=== PATIENT | female | born 1965 | race Two or more races ===

== ENCOUNTER → 2017-01-27 | Outpatient (CLI) | payer MEDICARE, MEDICAID ==
--- NOTE | 2017-01-27 10:29 | RADRPT ---
PROCEDURE: Bilateral knee x-ray CLINICAL INDICATION: PAIN TECHNIQUE: AP weightbearing, PA flexion, lateral and sunrise views were obtained of the right and l eft knees. COMPARISON: None FINDINGS: There is no evidence of acute fractures or dislocations. There is severe degenerative joint disease of both knees worse involving the medial compartments slightly worse on the left. There is no evid ence of right or left knee joint effusions. There is no evidence of patellar subluxation. Note marita t within the proximal lateral right tibial metaphysis is a nonaggressive 5 cm lucent lesion that is mildly expansile with sclerotic margins. This finding may represent a non-ossifying fibroma or poss ibly enchondroma. There are no focal bony blastic or lytic lesions. The bones are osteopenic. The soft tissues are unremarkable. IMPRESSION: 1. Severe degenerative joint disease of both knees slightly worse on the left. 2. No acute fractures dislocations patellar subluxation or joint effusions. 3. 5 cm nonaggressive lesion involving the lateral proximal right tibial diaphysis as above. 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 RPTAT:AAJJ Physician Deidre Date Time Electronically viewed and signed by Physician Deidre on 01/27/2017 10:29 BM/
== END | disposition home or self-care (01) ==
LOC: HKI 10:57
PROVIDERS: ATTEND Orthopaedic Surgery
DX: M17.0 Bilateral primary osteoarthritis of knee (principal)
CPT/HCPCS: 20610; 73564; G0463; J1030

== ENCOUNTER → 2017-03-03 | Outpatient (CLI) | payer MEDICARE, MEDICAID | END | disposition home or self-care (01) | LOC: HKI 10:37 | PROVIDERS: ATTEND Orthopaedic Surgery | DX: M17.0 Bilateral primary osteoarthritis of knee (principal); I10 Essential (primary) hypertension; E78.00 Pure hypercholesterolemia, unspecified; E03.9 Hypothyroidism, unspecified; D16.9 Benign neoplasm of bone and articular cartilage, unspecified | CPT/HCPCS: G0463 ==